=== PATIENT | female | born 1955 | race Caucasian/White ===

== ENCOUNTER 2017-10-18 16:50 | Inpatient (IN) | payer OTHER ==
[~2017-10-18] VITALS: Ht 172.7 cm; Wt 73.5 kg
--- NOTE | ~2017-10-18 | EKG ---
[address] [address] ELECTROCARDIOGRAM REPORT Name: DELANEY GEIGER [facility] [id number] Admission: 10/18/17 Attend Phys: Discharge: Date of : 55 Report #: [id number] THIS REPORT FOR: //name// [facility] ED Test Date: 2017-10-18 Test Time: 19:25:05 Pat Name: DELANEY GEIGER Department: Room: Gender: F Condemnation Engineer: KKODJOVI : 1955 Requested By: Nuzhat Spain Order Number: [id number] MD: Wilberto Florian Measurements Intervals [place] Rate: 61 P: 13 MO: 235 QRS: 27 QRSD: 96 T: 64 QT: 445 QTc: 449 Interpretive Statements Sinus rhythm Prolonged MO interval Borderline repolarization abnormality No previous ECG available for comparison Electronically Signed On 10-18-2017 20:09:36 [employer] PROVID[employer] by Wilberto Florian [email or web address] <ELECTRONICALLY SIGNED> By: Wilberto Florian MD 10/18/172008 24 24 Wilberto Florian MD /SATISH
[2017-10-18 16:52] VITALS: BP 139/70
[2017-10-18] MEDS ORDERED: PROTONIX40 M1 PO (18:07)
[2017-10-18] MEDS ORDERED: CARDURA4 MG PO (18:07)
[2017-10-18] MEDS ORDERED: LASIX 40 MG TAB40 M2 PO (18:07)
[2017-10-18] MEDS ORDERED: TRAMADOL 50 MG50 MG PO (18:08)
[2017-10-18] MEDS ORDERED: VENTOLIN HFA 1818 GM INH (18:08)
[2017-10-18] MEDS ORDERED: BREO ELLIPTA 21 EACH INH (18:08)
[2017-10-18] MEDS ORDERED: LIDOCAINE1 EACH TRANSDERM (19:00)
[2017-10-18] MEDS ORDERED: NORFLEX100 MG PO (19:01)
[2017-10-18] MEDS ORDERED: MEDROLDOSEPACK PO (19:15)
[2017-10-18 20:06] LABS: HEMATOCRIT 37.8 % (37.0-47.0); HEMOGLOBIN 12.7 gm/dL (12.0-15.0); MCH 26.1 pg (26.0-34.0); MCHC 33.6 g/dL (28.0-37.0); MCV 77.7 fL (80.0-100.0); RBC 4.87 mil/uL (4.20-5.00); WBC 11.4 thou/uL (4.0-11.0)
[2017-10-18 20:16] LABS: ANION GAP 8 mmol/L (7-16); BUN 10 mg/dL (7-18); CHLORIDE 96 mmol/L (98-107); CO2 30 mmol/L (21-32); CREATININE 0.7 mg/dL (0.6-1.0); GLUCOSE 168 mg/dL (74-106); SODIUM 134 mmol/L (136-145)
[2017-10-18 20:18] LABS: POTASSIUM 1.6 mmol/L (3.5-5.1)
[2017-10-18 20:24] LABS: ALBUMIN 3.2 g/dL (3.4-5.0); ALKALINE PHOSPHATASE 94 U/L (46-116); SGOT 17 U/L (15-37); SGPT 25 U/L (30-65); TOTAL BILIRUBIN 0.2 mg/dL (<0.1-1.0); TOTAL PROTEIN 7.1 g/dL (6.4-8.2); TROPONIN-I < 0.04 ng/mL (<0.06)
[2017-10-18 22:10] VITALS: BP 132/72
[2017-10-19 04:00] VITALS: BP 148/66
[2017-10-19 08:13] LABS: HEMATOCRIT 36.5 % (37.0-47.0); MCHC 32.9 g/dL (28.0-37.0); MCV 79.2 fL (80.0-100.0); RBC 4.61 mil/uL (4.20-5.00); RDW 14.9 % (10.5-14.5); WBC 6.7 thou/uL (4.0-11.0)
[2017-10-19 08:18] LABS: CALCIUM 8.9 mg/dL (8.5-10.1); CREATININE 0.5 mg/dL (0.6-1.0)
[2017-10-19 08:20] LABS: POTASSIUM 2.4 mmol/L (3.5-5.1)
[2017-10-19 08:21] VITALS: BP 131/62
[2017-10-19 09:35] LABS: MAGNESIUM 2.3 mg/dL (1.8-2.4)
[2017-10-19 16:00] VITALS: BP 128/70
[2017-10-19 17:49] LABS: URINE BILIRUBIN NEGATIVE (Negative); URINE BLOOD NEGATIVE (Negative); URINE COLOR YELLOW; URINE GLUCOSE-RANDOM* NEGATIVE (Negative); URINE KETONES NEGATIVE (Negative); URINE LEUKOCYTES-REFLEX NEGATIVE (Negative); URINE PROTEIN (DIPSTICK) NEGATIVE (Negative); URINE SPECIFIC GRAVITY <= 1.005 (1.003-1.035); URINE UROBILINOGEN 0.2 E.U./dl (0.2-1.0)
[2017-10-19 20:40] VITALS: BP 122/72
[2017-10-20 03:22] VITALS: BP 127/63
[2017-10-20 03:33] LABS: CALCIUM 8.6 mg/dL (8.5-10.1); CREATININE 0.7 mg/dL (0.6-1.0); MAGNESIUM 2.2 mg/dL (1.8-2.4); POTASSIUM 3.2 mmol/L (3.5-5.1)
[2017-10-20 03:55] LABS: ABSOLUTE NEUTROPHILS 3.6 thou/uL (1.4-8.2); BASOPHILS 0.5 % (0.0-2.0); EOSINOPHILS 3.9 % (0.0-3.0); HEMATOCRIT 34.1 % (37.0-47.0); HEMOGLOBIN 11.3 gm/dL (12.0-15.0); LYMPHOCYTES 41.5 % (24.0-44.0); MCH 26.6 pg (26.0-34.0); MCHC 33.2 g/dL (28.0-37.0); MCV 80.2 fL (80.0-100.0); MONOCYTES 9.7 % (1.0-8.0); PLATELET COUNT 233 thou/uL (150-400); POLYS 44.4 % (36.0-66.0); RBC 4.25 mil/uL (4.20-5.00); RDW 15.5 % (10.5-14.5); WBC 8.1 thou/uL (4.0-11.0)
[2017-10-20 04:10] LABS: MANUAL DIFF NO
[2017-10-20 07:55] VITALS: BP 129/68
[2017-10-20] MEDS ORDERED: POTASSIUM20 PO (14:13)
[2017-10-20 16:06] VITALS: BP 129/68
== END 2017-10-20 16:33 | disposition home or self-care (01) | DRG 552 ==
LOC: ER 16:50 → 4S 20:46 → EROBS 20:46 → 4S 21:40 → ENTRNSPT 10-20 16:19 → 4S 10-20 16:33
PROVIDERS: Internal Medicine; Nurse Practitioner Family; Physician Assistant
DX: M54.6 Pain in thoracic spine (principal); E87.6 Hypokalemia; K21.9 Gastro-esophageal reflux disease without esophagitis; J45.909 Unspecified asthma, uncomplicated; R33.9 Retention of urine, unspecified; K42.9 Umbilical hernia without obstruction or gangrene; E86.0 Dehydration; Z79.899 Other long term (current) drug therapy; Z82.49 Family history of ischemic heart disease and other diseases of the circulatory system
CPT/HCPCS: 10100

== ENCOUNTER 2021-11-30 10:49 | Emergency (ER) | payer OTHER ==
[~2021-11-30] VITALS: Ht 172.7 cm; Wt 72.6 kg
[~2021-11-30 10:49] MED LIST: BREO ELLIPTA 21 EACH INH; CARDURA4 MG PO; LASIX 40 MG TAB40 M2 PO; LIDOCAINE1 EACH TRANSDERM; MEDROLDOSEPACK PO; NORFLEX100 MG PO; POTASSIUM20 PO; PROTONIX40 M1 PO; TRAMADOL 50 MG50 MG PO; VENTOLIN HFA 1818 GM INH
[2021-11-30 10:50] VITALS: BP 174/65
[2021-11-30 11:20] LABS: ABSOLUTE NEUTROPHILS 4.9 thou/uL (1.4-8.2); BASOPHILS 0.8 % (0.0-2.0); EOSINOPHILS 4.2 % (0.0-3.0); HEMATOCRIT 40.1 % (37.0-47.0); LYMPHOCYTES 22.9 % (24.0-44.0); MCH 26.9 pg (26.0-34.0); MCHC 32.5 g/dL (28.0-37.0); MCV 82.9 fL (80.0-100.0); MONOCYTES 7.8 % (1.0-8.0); PLATELET COUNT 254 thou/uL (150-400); POLYS 64.3 % (36.0-66.0); RBC 4.83 mil/uL (4.20-5.00); RDW 16.1 % (10.5-14.5); WBC 7.6 thou/uL (4.0-11.0)
[2021-11-30 11:56] LABS: CALCIUM 9.7 mg/dL (8.5-10.1); CREATININE 0.7 mg/dL (0.6-1.0); POTASSIUM 3.3 mmol/L (3.5-5.1)
[2021-11-30 12:11] LABS: ALBUMIN 3.7 g/dL (3.4-5.0); TOTAL BILIRUBIN 0.4 mg/dL (0.2-1.0); TOTAL PROTEIN 7.5 g/dL (6.4-8.2)
[2021-11-30] MEDS ORDERED: PREDNISONE 20 M20 MG PO (12:57)
[2021-11-30] MEDS ORDERED: NAPROSYN500 MG PO (12:57)
== END 2021-11-30 13:20 | disposition home or self-care (01) ==
LOC: ER 10:49
PROVIDERS: Emergency Medicine
DX: M79.605 Pain in left leg (principal); M79.604 Pain in right leg; M25.462 Effusion, left knee; K21.9 Gastro-esophageal reflux disease without esophagitis; J45.909 Unspecified asthma, uncomplicated; Z90.89 Acquired absence of other organs; Z79.51 Long term (current) use of inhaled steroids; Z79.899 Other long term (current) drug therapy